=== PATIENT | female | born 1960 | race Caucasian/White ===

== ENCOUNTER → 2017-01-05 | Outpatient (CLI) | payer BC ==
[~2017-01-05] MED LIST: CALCIUM VITAMIN D PO; LISINOPRIL5 MG PO; LOMOTIL WHITE2.5 M1 PO; MULTIVITAMINS1 EAC3 PO; PROBIOTIC1 EAC1 PO
--- NOTE | ~2017-01-05 | CT138 ---
[facility] A Service of [facility] & [facility] RADIOLOGY TEXT RESULTS PATIENT: EPIFANIO GAMBOA LOCATION: [facility] : 56 UNIT #: [id number] AGE: [address]: Lory Lerner APRN SEX: F ORDER DR: [id number] [facility] [address] [facility] [address] [place], [place] [address] [id number] O MR#: [id number] Acc #: [id number] NAME: EPIFANIO GAMBOA : 1960 SEX: F STUDY DATE/TIME: 01/05/2017 7:13 UNIT: [facility] ROOM: STUDY DESCRIPTION: CT Lung screening initial Attending Physician: Lory Lerner A.P.R.N. Referring Physician: Lory Lerner A.P.R.N. Ordering Physician: Lory Lerner A.P.R.N. Primary Care Physician: Orlando Tariq M.D. MEDICAL IMAGING REPORT This report is preliminary unless electronic signature is present EXAM CT of the chest without contrast. Lung cancer screening. INDICATIONS 56-year-old female with 30 pack-year total smoking history. Current smoker. TECHNIQUE CT of the chest was performed without contrast using the low-dose lung cancer screening protocol. Coronal and sagittal reformatted images were obtained. CT dose index 2.[address] exam was performed with one or more of the following radiation dose reduction techniques: automatic exposure control, adjustment of mA and/or kV according to patient size, and iterative reconstruction. No comparisons. FINDINGS There is biapical scarring. Mild emphysema. There is tree-in-bud nodularity in the anterior right lower lobe with associated calcifications likely from prior granulomatous disease. There is a 7 mm peripheral density in the left lower lobe on image 60. There are peripheral areas of presumed scarring in the posterior aspects of the superior segment of both lower lobes. Calcified mediastinal and hilar lymph nodes. No pleural effusion. Limited imaging in the upper abdomen demonstrates multiple cysts in the liver. Bone windows demonstrate degenerative changes of the thoracic spine. IMPRESSION 1. Mild emphysema. 2. Scattered areas of presumed scarring in the upper zones. 3. Tree-in-bud nodularity with calcifications in the anterior right STS. [facility] A Service of [facility] & [facility] RADIOLOGY TEXT RESULTS PATIENT: EPIFANIO GAMBOA LOCATION: [facility] : 56 UNIT #: [id number] AGE: [address]: Lory Lerner APRN SEX: F ORDER DR: lower lobe likely from prior granulomatous disease. 4. 7 mm parenchymal nodular density in the periphery of the left lower lobe. ACR lung RADS category 3. Follow up low-dose chest CT in 6 months. Dictated by... Issa Jc M.D. THIS IS AN ELECTRONICALLY VERIFIED REPORT Issa Jc M.D. at 01/08/2017 4:55 PM Joaquin TD: 01/08/2017 10:01 JOB #: [id number] MEDICAL IMAGING REPORT Page 1 of 1 COPY
== END | disposition home or self-care (01) ==
LOC: CCAT 06:50
DX: Z87.891 Personal history of nicotine dependence (principal); J43.9 Emphysema, unspecified; J98.4 Other disorders of lung; R91.8 Other nonspecific abnormal finding of lung field
CPT/HCPCS: G0297

== ENCOUNTER → 2017-05-29 | Day surgery (SDC) | payer BC ==
--- NOTE | ~2017-05-29 | OR ---
Unit #: [id number] #: [id number] Patient: EPIFANIO GAMBOA [id number] [address] [address] [id number] O MR#: [id number] NAME: EPIFANIO GAMBOA. ROOM: Date of Procedure: 05/29/2017 Admission Date: 05/29/2017 Surgeon: Mitch Saxena M.D. : 1960 Attending Physician: Mitch Saxena M.D. Primary Care Physician: Orlando Tariq M.D. OPERATIVE REPORT ADDITIONAL ATTENDING PHYSICIAN Dr. Orlando Tariq. PREOPERATIVE DIAGNOSES The patient has presented with a history of diarrhea and weight loss as well as left and right lower quadrant abdominal pain. PROCEDURES PERFORMED Upper gastrointestinal endoscopy and biopsy as well as colonoscopy with biopsy and colonoscopy with polypectomy. POSTOPERATIVE DIAGNOSES For upper endoscopy: The patient had mild diffuse prepyloric antral gastritis. This was in the form of erythema and scant erosions in the antral area. A biopsy was obtained from this area for CLOtest. In addition, biopsies were also obtained from the deep descending duodenal folds to look for any evidence of partial villous atrophy or celiac disease. The examination was otherwise normal up to third part of duodenum. For colonoscopy: 1. A single sessile polyp in the proximal sigmoid colon. This was about a centimeter in size. It was removed using snare polypectomy. 2. Rest of the examination up to cecum and terminal ileum was normal. The quality of the prep was excellent. No diverticula or hemorrhoids were seen. Multiple random colonic biopsies were obtained from throughout the colon to rule out microscopic or collagenous colitis. RECOMMENDATIONS The patient will be followed up in the office in 3 months' time. In the meantime, she will be using Lomotil on a p.r.n. basis. SEDATION USED MAC. DESCRIPTION OF PROCEDURE Following detailed explanation of potential risks and complications of an upper endoscopy and a colonoscopy, namely perforation, bleeding, and complication related to sedation, the patient was brought to GI lab and laid in the left lateral decubitus position. Lubricated tip of the Olympus video upper endoscope was passed through the bite block into the Unit #: [id number] #: [id number] Patient: EPIFANIO GAMBOA proximal esophagus under direct vision. The entire esophageal mucosa was examined and appeared normal. Z-line was nicely demarcated, there being no esophagitis or hiatus hernia. The scope was then advanced into the gastric cavity and the latter was insufflated. Mucosa of the fundus, body, and antrum was examined and mild diffuse prepyloric antral erythema was noted indicating antral gastritis. Pylorus was intubated with visualization of the normal duodenal bulb and second and third part of the duodenum. Upon withdrawal and retroflexion; incisura, cardia, and greater curve was examined and no additional findings noted. Biopsies were obtained from the deep descending duodenal folds to look for any evidence of partial villous atrophy or celiac disease. A biopsy was also obtained from the antrum for CLOtest. The scope was then withdrawn in the distal esophagus. The entire esophageal mucosa was examined all the way up to pharynx. No additional findings were noted. The examination table was then turned by 180 degrees and the patient positioned for a colonoscopy. A digital rectal examination was performed, which was normal. Lubricated tip of the Olympus video colonoscope was inserted through the anus and advanced under direct vision. The scope was advanced past rectosigmoid into descending colon. No diverticula were noted in this area. The scope tip was then navigated all the way up to cecum with visualization of the ileocecal valve and the appendiceal orifice. Preparation was excellent with good visualization and photodocumentation was obtained. Last several inches of the terminal ileum were also visualized after intubation of the ileocecal valve and appeared normal. Successive segments of the colonic mucosa were examined upon withdrawal and appeared unremarkable except for a single sessile polyp in the proximal sigmoid colon. The latter was about a centimeter in size. It was removed using snare cautery polypectomy. The polyp was retrieved and sent for histology. No additional polyps were noted. Multiple random colonic biopsies were also obtained from throughout the colon to rule out microscopic or collagenous colitis. The patient did not have any diverticulosis nor any hemorrhoids. The scope was then withdrawn and the patient returned to the recovery area. She tolerated the procedure without any postprocedure complications. Dictated by... Surya Young TD: 05/29/2017 11:23 JOB #: [id number] CC: Lory Lerner A.P.R.N. OPERATIVE REPORT Page 1 of 1 X Mithc Saxena MD PROCEDURE OPERATIVE NOTE
== END | disposition home or self-care (01) ==
LOC: COPS 06:53
DX: D12.5 Benign neoplasm of sigmoid colon (principal); K25.9 Gastric ulcer, unspecified as acute or chronic, without hemorrhage or perforation; I10 Essential (primary) hypertension; Z87.891 Personal history of nicotine dependence; Z88.0 Allergy status to penicillin; Z79.899 Other long term (current) drug therapy; Z90.710 Acquired absence of both cervix and uterus
CPT/HCPCS: 87077; 88305; J2250